=== PATIENT | female | born 1930 | race Caucasian/White ===

== ENCOUNTER 2016-10-06 13:10 | Emergency (ER) | payer MEDICARE, BC ==
[~2016-10-06] VITALS: Ht 165.1 cm; Wt 63.5 kg
[2016-10-06 13:41] VITALS: BP 129/69
[2016-10-06 13:52] LABS: BASOPHILS % (AUTO) 0.8 % (0.0-2.0); EOSINOPHILS % (AUTO) 0.9 % (0.0-3.0); LYMPHOCYTES % (AUTO) 13.8 % (20.0-45.0); MEAN CORPUSCULAR HEMOGLOBIN 29.7 PG (27.0-31.0); MEAN CORPUSCULAR HGB CONC 33.9 G/DL (32.0-36.0); MEAN CORPUSCULAR VOLUME 88 FL (80-99); MEAN PLATELET VOLUME 6.6 FL (6.5-10.1); MONOCYTES % (AUTO) 9.5 % (1.0-10.0); NEUTROPHILS % (AUTO) 75.1 % (45.0-75.0); PLATELET COUNT 266 K/UL (150-450); RED BLOOD COUNT 4.06 M/UL (4.20-5.40); RED CELL DISTRIBUTION WIDTH 12.7 % (11.6-14.8); WHITE BLOOD COUNT 8.3 K/UL (4.8-10.8)
--- NOTE | 2016-10-06 13:57 | Emergency Room Report ---
History of Present Illness General Chief Complaint: Syncope Source: Patient, Family Member, EMS (AGUSTO JUSTIN M.D.) Present Illness HPI 86 YOF BIBEMS for witnessed syncope. Per patient's , had left "thyroid doctor" office. Were at [facility]. Patient commented to "this food tastes salty, lets not eat hear again," then head started nodding and she couldnt be aroused. Bystanders placed patient on floor, someone checked and didnt feel a pulse, started CPR "briefly," got "pulse back" then called EMS. Patient endorses history of usually HIGH BP. Just started diltiazem 180mg, QHS , recently. Took last night. Takes Benicar in morning. Also takes Flomax. Many years of taking levothyroxine since thyroidectomy. patient was at other ER last week for elevated BP, "Weakness" and nausea. Gets up to use bathroom 3x each night. States was DCed from ED. Also had " abdominal ultrasound" done over the weekend. Doesnt know why. PMD didnt call with results. (AGUSTO JUSTIN M.D.) Allergies: Coded Allergies: PENICILLINS (Verified Allergy, Unknown, 10/06/16) Uncoded Allergies: PENECILLIN (Allergy, Unknown, 10/06/16) Patient History Past Medical History: HTN, other - hypothyroid Past Surgical History: other - thyroidectomy Pertinent Family History: none Social History: Denies: alcohol use, drug use, smoking Now: No Immunizations: UTD Reviewed Nursing Documentation: PMH: Agreed, PSxH: Agreed (AGUSTO JUSTIN M.D.) Nursing Documentation-PMH Past Medical History: No History, Except For Hx Hypertension: Yes (AGUSTO JUSTIN M.D.) Review of Systems All Other Systems: negative except mentioned in HPI (AGUSTO JUSTIN M.D.) Physical Exam Vital Signs Date Time Temp Pulse Resp B/P Pulse Ox O2 Delivery O2 Flow Rate FiO2 10/06/16 13:11 97.3 72 18 129/69 98 Room Air Sp02 EP Interpretation: reviewed, normal General Appearance: normal inspection, well appearing, no apparent distress, alert, GCS 15, non-toxic, thin, other - looks weak Head: normocephalic, atraumatic Eyes: bilateral eye EOMI, bilateral eye PERRL ENT: normal ENT inspection, hearing grossly normal, normal voice Neck: normal inspection, full range of motion, supple, no bony tend Respiratory: normal inspection, lungs clear, normal breath sounds, no rhonchi, no respiratory distress, no retraction, no accessory muscle use, no wheezing Cardiovascular #1: regular rate, rhythm, no edema Gastrointestinal: normal inspection, normal bowel sounds, non tender, soft, no guarding, no hernia Genitourinary: no CVA tenderness Musculoskeletal: normal inspection, back normal, normal range of motion, Jimmie' s Sign negative Neurologic: normal inspection, alert, oriented x3, responsive, business banking manager III-XII nml as tested, motor strength/tone normal, speech normal Psychiatric: normal inspection, judgement/insight normal, mood/affect normal Skin: normal inspection, normal color, no rash (AGUSTO JUSTIN M.D.) Medical Decision Making Medicare Attestation I Agusto Justin MD hereby attest that the medical record entry for date of service, 08/04/16 accurately reflects signatures/notations that I made in my capacity as MD when I treated/diagnosed the above listed Medicare beneficiary. I attest that this information is true, accurate and complete to the best of my knowledge. I understand that any falsification, omission, or concealment of material fact may subject me to administrative, civil, or criminal liability. This patient warrants hospital admission for extreme of age and has a condition that cannot be treated as outpatient. (AGUSTO JUSTIN M.D.) Diagnostic Impression: Primary Impression: Syncope Qualified Codes: R55 - Syncope and collapse Additional Impression: Weakness ER Course 86 YO F with syncope, ?cardiac arrest based on bystander report, but likely just syncope. VSS. Afebrile ?BP is low compared to usually very elevated Labs: Normal H&H. No leuks. Troponin 0. CXR: No PTX, cardiomegaly or wide mediastinum ECG: No ischemia. DDx: medication interaction, recent addition of Dilt and Flomax; AAA Pending aortic aneurysm sono Endorsed to Dr Jeter to followup Federico heredia and endorse patient for admission at 230pm (AGUSTO JUSTIN M.D.) ER Course Please note that the patient was set for admission to the hospital for syncope there was also pending ultrasound for further investigation Given her age and presentation, there was also concern for possible vascular pathology The at this time is fairly adamant that he wants to take the patient to another hospital He reports that his was just released from [facility] on the second And would like to take her back to that facility I discussed with him at length regarding the need for hospitalization, the and patient state that they cannot stay here and the states that he can drive the patient to the other hospital. He understands that transferring her with her current diagnosis and presentation can lead to worsening symptoms in route, other cardiac events and possible And is leaving AGAINST MEDICAL ADVICE The patient herself also states that she needs to be at her usual facility. She is awake alert, and in discussion with her understands the risks and benefits, and is also choosing to leave AGAINST MEDICAL ADVICE (TAMIR JETER D.O.) EKG Diagnostic Results Rate: normal Rhythm: NSR ST Segments: no acute changes ASA given to the pt in ED: No (AGUSTO JUSTIN M.D.) Rhythm Strip Diag. Results EP Interpretation: yes Rate: 65 Rhythm: NSR, no PVC's, no ectopy (AGUSTO JUSTIN M.D.) Chest X-Ray Diagnostic Results EP Interpretation: Yes Findings: no consolidation, no effusion, no pneumothorax, no acute cardiopulmonary disease Number of Views: 1 (AGUSTO JUSTIN M.D.) Reevaluation Time: 14:06 Last Vital Signs Date Time Temp Pulse Resp B/P Pulse Ox O2 Delivery O2 Flow Rate FiO2 10/06/16 13:41 97.3 87 18 129/69 98 Room Air Status: improved (AGUSTO JUSTIN M.D.) Disposition: ADMITTED INPATIENT Condition: Serious AGUSTO JUSTIN M.D. Oct 06, 2016 13:57 TAMIR JETER D.O. Oct 06, 2016 15:26
[2016-10-06 14:00] VITALS: BP 131/70
[2016-10-06 14:07] LABS: TROPONIN I < 0.30 ng/mL (<=0.30)
[2016-10-06 14:10] LABS: ALANINE AMINOTRANSFERASE 20 U/L (3-33); ALBUMIN/GLOBULIN RATIO 1.9 (1.0-2.7); ANION GAP 17 (5-15); ASPARTATE AMINO TRANSFERASE 22 U/L (5-40); CALCIUM 8.6 mg/dL (8.6-10.2); CARBON DIOXIDE 24 mEQ/L (20-30); CHLORIDE 101 mEQ/L (98-107); CREATININE 0.8 mg/dL (0.5-0.9); HEMOLYSIS 3; POTASSIUM 3.9 mEQ/L (3.4-4.9); SODIUM 142 mEQ/L (135-145); TOTAL PROTEIN 6.2 g/dL (6.6-8.7)
[2016-10-06 14:24] LABS: CKMB 3.3 ng/mL (< 3.8)
[2016-10-06 15:00] VITALS: BP 127/66
[2016-10-06 15:29] VITALS: BP 127/66
--- NOTE | 2016-10-06 16:38 | Diagnostic Imaging Report ---
Indication: Shortness of breath Technique: One view of the chest Comparison: none Findings: Lung and pleural spaces are clear. Aorta is tortuous and calcified. Upper mediastinum is unremarkable. Surgical clips are seen in the right upper mediastinum Impression: No acute process
--- NOTE | 2016-10-14 14:43 | Cardiology Report ---
APPROVED REPORT EKG Measurement Heart [id number] Normal sinus rhythm Inferior infarct, age undetermined Abnormal ECG
== END 2016-10-06 15:30 | disposition left against medical advice (07) ==
LOC: EDBD 13:10 → EMR 13:55 → CANBEDREQ 15:23 → EMR 15:30
DX: R55 Syncope and collapse (principal); R53.1 Weakness; I10 Essential (primary) hypertension; E03.9 Hypothyroidism, unspecified; Z88.0 Allergy status to penicillin
CPT/HCPCS: 36415; 71010; 80053; 82550; 82553; 84443; 84484; 85025; 93005; 99284